=== PATIENT | female | born 1995 | race Caucasian/White ===

== ENCOUNTER 2022-05-26 09:17 | Outpatient (CLI) | payer OTHER ==
[~2022-05-26] VITALS: Ht 162.6 cm; Wt 82.7 kg
[2022-05-26 10:00] VITALS: BP 148/82; PULSE 84
[2022-05-26] MEDS ORDERED: PRENATAL TABLET PO (10:28)
[2022-05-26 10:30] VITALS: BP 131/78; PULSE 77
--- NOTE | 2022-05-26 10:54 | NUR ---
0920-PT PRESENTS TO L&D C/O CONTRACTIONS THAT BEGAN ON 05/26/ @ 0400. PT DENIES LEAKING OF FLUID, VAGINAL BLEEDING, AND DECREASE MOVEMENT. PT PLACED IN ROOM 6 FOR FURTHER EVALUATION. 0932- SVE /2 PERFORMED BY Renee BARBER RN. CATEGORY 1 STRIP AT THIS TIME WITH FHR IN THE 130S. VS WNL. PT STABLE AT THIS TIME. 0909-DR. MURPHY NOTIFIED OF PT ARRIVAL. ORDERS GIVEN FOR EFM AND SVE IN ONE HOUR. POC EXPLAPLAINED TO PT. PT VERBALIZED UNDERSTANDING.
--- NOTE | 2022-05-26 10:58 | NUR ---
1030-SVE /2 PERFORMED BY Renee BARBER RN. FHR IN THE 120S WITH MODERATE VARIABILITY, ACCELERATIONS, AND INTERMITTENT VARIABLE DECELERATIONS. 1045-DR. MURPHY NOTIFIED. WILL COME TO L&D TO EVALUATE. PT STABLE.
[2022-05-26 11:00] VITALS: BP 132/65; PULSE 93
[2022-05-26 11:30] VITALS: BP 137/81; PULSE 80
--- NOTE | 2022-05-26 11:35 | NUR ---
1110-DR. MURPHY ARRIVED TO L&D. REVIEWED AND AKNOWLEGED STRIP. ORDERS GIVEN TO DISCHARGE PT WITH LABOR PRECAUTIONS. 1130-PT DISCHRGED FROM UNIT IN STABLE CONDITION WITH NO COMPLAINTS. CATEGORY 1 STRIP AT TIME OF DISCHARGE. LABOR PRECAUTIONS EXPLAINED TO PT. PT VERBALIZED UNDERSTANDING.
[2022-05-27] MEDS ORDERED: MOTRIN 800800 MG/TAB PO (12:44)
[2022-05-27] MEDS ORDERED: PERCOCET 325 MG1 TA2 PO (12:44)
== END 2022-05-26 11:30 | disposition home or self-care (01) ==
LOC: LDRO 09:17
DX: Z34.93 Encounter for supervision of normal pregnancy, unspecified, third trimester (principal); Z3A.41 41 weeks gestation of pregnancy

== ENCOUNTER 2022-05-26 17:58 | Inpatient (IN) | payer OTHER ==
[2022-05-26] VITALS (23 sets, daily range): BP systolic 101–157; BP diastolic 63–95; PULSE 81–106; TEMP 98.2–98.8
[~2022-05-26] VITALS: Ht 162.6 cm; Wt 82.7 kg
[~2022-05-26 17:58] MED LIST: PRENATAL TABLET PO
--- NOTE | 2022-05-26 18:34 | NUR ---
1751-PT ARRIVED TO UNIT IN STABLE CONDITION C/O CONTRACTIONS. PT DENIES DECREASED FM, VAGINAL BLEEDING, OR LEAKING. PT PLACED IN ROOM 6 FOR FURTHER EVALUATION.
--- NOTE | 2022-05-26 18:35 | NUR ---
1819-BEDSIDE REPORT GIVEN TO JENNIFER BLACK. PT STABLE AT THIS TIME. CARE TO CONTINUE.
--- NOTE | 2022-05-26 19:15 | NUR ---
191Dr. Thomas updated on pt. See physician notification. Plan of care reviewed with pt and SO who verbalize understanding. 1930IV to left FA. Routine labs obtained. LR bolus infusing. Tirso Carrasco CRNA notified pt requesting epidural. Consent forms explained and signed. 2000Pt to edge of bed for epidural placement. FHR tracing intermittently due to maternal position. RN remains at bedside adjusting EFM. 2015Epidural placed and test dose by Tirso Islas CRNA. See anesthesia record. 2019Pt wedge left. EFM adjusted and tracing well. Plan of care and safety precautions reviewed with pt and SO who verbalize understanding. Pt resting wtih call light within reach.
[2022-05-26 19:44] LABS: HEMATOCRIT 39.3 % (37.0-47.0); HEMOGLOBIN 14.1 g/dl (12.5-16.0); MEAN CELL VOLUME 86 fl (80.0-100.0); MEAN CORPUSCULAR HEMOGLOBIN 31 pg (27-31); MEAN CORPUSCULAR HGB CONC 36 g/dl (33.0-37.0); PLATELET COUNT 213 K/mm3 (130-400); RED BLOOD COUNT 4.55 M/mm3 (4.10-5.30); REDCELL DISTRIBUTION WIDTH-CV 12.8 % (11.5-14.5)
--- NOTE | 2022-05-26 20:00 | NUR ---
1999L. Roshan LOPEZ to bedside for epidural placement. Pt to edge of bed. FHR tracing intermittently due to maternal position. RN remains at bedside adjusting EFM. 2014Epidural placed and test dose at this time by Tirso Carrasco CRNA, see anesthesia record. Plan of care and safety precautions reviewed with pt who verbalizes understanding. RN remains at bedside. 2037Dr. Thomas updated on pt. See physician notification. 2039Late decel noted. Dr. Thomas on unit and to bedside to see pt. Dr. Thomas reviews plan of care with patient and SO who state understanding. FHR to 70-80bmp. Pt right and left lateral. LR bolus initiated. ROM by Dr. Thomas for clear fluid. SVE 3/-2. FSE applied by provider. Pt wedge left. 2044FHR returns to baseline of 140bmp. Dr. Thomas remains on unit. 2047Catheter placed with pt in wedge left position. 2104Recurrent late and variable decels. Pt right side. 2117Dr. Thomas to bedside and reviews plan of care discusses options with pt. Decision at this time to proceed with primary section. 2119L. Danilo LOPEZ to bedside to dose epidural. 1Prolonged FHR decel to 70bmp and lasting 5min. Pt right and left lateral. EFM off and pt to OR suite. 2244Patient to pacu via bed. Monitors applied. Assessment completed. Fundus firm, midline, and bleeding minimal. Elle pad applied. 2315 To room 221 via bed. Oriented to room and plan of care. Call light within reach.
[2022-05-26 21:11] LABS: BAND 6 % (0-10); LYMPHOCYTE 4 % (20.0-51.0); NEUTROPHILS 85 % (42.0-75.2); PLATELET ESTIMATE NORMAL (NORMAL)
[2022-05-27] VITALS (9 sets, daily range): BP systolic 105–112; BP diastolic 58–74; PULSE 74–89; TEMP 97.8–98.7
--- NOTE | 2022-05-27 10:59 | NUR ---
Initial visit attempt; Patient resting. Charge Hand left card offering congratulations and God's blessings for the of their son and information regarding the availability of spiritual care at our hospital.
[2022-05-27] MEDS ORDERED: MOTRIN 800800 MG/TAB PO (12:44)
[2022-05-27] MEDS ORDERED: PERCOCET 325 MG1 TA2 PO (12:44)
[2022-05-28 08:50] VITALS: BP 107/73; PULSE 82; TEMP 97.8
--- NOTE | 2022-05-28 15:30 | NUR ---
Discharge instructions and follow up care reviewed with pt and at the bedside. Both verbalized an understanding, agreed with the plan and states no questions or concerns at this time.
== END 2022-05-28 15:50 | disposition home or self-care (01) | DRG 787 ==
LOC: LDRO 17:58 → LDR 19:21 → OB 19:21
PROVIDERS: Obstetrics & Gynecology; ADMIT Obstetrics & Gynecology
PROC: 10D00Z1 Extraction of Products of Conception, Low, Open Approach (ICD-10-PCS; principal; 2022-05-26)
DX: O48.0 Post-term pregnancy (principal); O98.32 Other infections with a predominantly sexual mode of transmission complicating childbirth; O76 Abnormality in fetal heart rate and rhythm complicating labor and delivery; A63.0 Anogenital (venereal) warts; Z37.0 Single live birth; Z3A.41 41 weeks gestation of pregnancy
CPT/HCPCS: J0690; J1100; J1885; J2370; J2400; J2405; J2704; J2791; J3010; J7120